=== PATIENT | female | born 1980 | race Caucasian/White ===

== ENCOUNTER 2017-10-13 09:50 | Outpatient (CLI) | payer OTHER ==
--- NOTE | 2017-10-14 12:33 | MRI ---
THORACIC SPINE WITHOUT CONTRAST: History: Multiple sclerosis. Evaluate for progression of disease. Comparison: None. Technique: MRI of the thoracic spine was performed with and without intravenous gadolinium administra tion. Multisequential, multiplanar imaging was performed. FINDINGS: Appropriate T1 marrow signal intensity of the thoracic vertebrae. Vertebral body height is maintained . No fracture. No significant STIR hyperintensity seen to suggest edema or ligamentous injury. Visualized mediastinal structures are unremarkable. Dependent atelectasis change in the lung parenchy ma. Visualized solid organs are unremarkable. The thoracic cord has an overall normal size and signal intensity. There is no evidence of a T2 hyper intense lesion. No evidence of cord expansion. No evidence of cord atrophy or malacia. No abnormal en hancement. There are some degenerative changes of the lower cervical spine. Refer to separate cervical spine MRI report for further detailed. Throughout the thoracic spine, no significant degenerative disc disease. No significant central canal stenosis or foraminal narrowing of the thoracic spine. There is minimal disc bulge at T11-12 without significant compromise of the central canal. IMPRESSION: 1. Unremarkable MRI of the thoracic spine. No significant central canal stenosis or foraminal narrowi ng. 2. No abnormal signal intensity in the thoracic cord to suggest a demyelinating plaque. POS: [facility]
--- NOTE | 2017-10-14 12:52 | MRI ---
MRI BRAIN WITH AND WITHOUT CONTRAST: DATE: 10-14-17 HISTORY: 37-year-old female: G35 relapsing, remitting multiple sclerosis. G40.909 seizure disorder COMPARISON: None. TECHNIQUE: Multiple sequences obtained in axial, sagittal, and coronal planes; pre and post IV injection of gado linium-based contrast agent: 15 ml MultiHance. In addition to the standard sequences, sagittal FLAIR sequence, coronal FLAIR sequence, and post cont rast T1 coronal MP-RAGE sequences were obtained. FINDINGS: There is a subtle, small, approximately 1 cm patch of hyperintensity on T2 WI and FLAIR, at the left brachium pontis (middle cerebellar peduncle) abutting the lateral edge of the 4th ventricle. There is a subtle, minimal, less than 1 cm patch of hyperintensity demonstrated on FLAIR sequence in the right posterior medial temporal lobe abutting the lateral edge of the periventricular white matte r between the trigone and temporal horn of the right lateral ventricle (axial image 11 of 27, series 2). There is also a similar small patchy focus of subtle hyperintensity of T2 WI and FLAIR in the periven tricular white matter abutting the occipital horn of the right lateral ventricle (axial image 12 of 2 7, series 2). There is no lesion involving the corpus callosum or centrum semiovale. No signal abnormality of the c erebellum or cortex. Brain parenchymal volume is normal. Ventricles are normal in size and configurat ion. No evidence of recent or remote hemorrhage. No mass effect, midline shift, or extraaxial fluid c ollection. Hippocampi are normal and symmetrical in size bilaterally. IMPRESSION: 1. Three small, subtle, faint patchy foci of signal abnormality: one in the left brachium pontis, one in the periventricular white matter abutting the right occipital horn, and another in the periventri cular white matter of the posterior medial right temporal lobe. These are nonspecific. One possibilit y is a demyelinating disease such as multiple sclerosis. 2. Recommend follow up. VANESSA Jordan POS: [facility]
--- NOTE | 2017-10-14 13:08 | MRI ---
MRI CERVICAL SPINE WITH AND WITHOUT CONTRAST: Multiplanar, multisequential imaging cervical spine obtained. Postcontrast images obtained after adm inistration of 15 cc MultiHance IV. INDICATION: Relapsing remitting multiple sclerosis. COMPARISON: No comparison. FINDINGS: The cervical vertebrae maintain normal height and alignment. Vertebral body signal is normal. The d isk spaces are maintained. There is a small protrusion paracentrally to the left at C6-7. This flattens the anterior thecal sac on the left but does not impinge on the cord. There is no foraminal encroachment. Mild disk bulge at C4-5 and C5-6 flattens the thecal sac and mildly effaces the anterior subarachnoid space at both of these levels. The cord signal is normal. There is no evidence of demyelinating plaque seen within the cervical cor d. No abnormal enhancement is seen within the cervical cord. IMPRESSION: 1. No abnormal cervical cord signal. 2. Small protrusion paracentrally on the left at C6-7. Mild disk bulge at C4-5 and C5-6 as describe d above. POS: [facility]
--- NOTE | 2017-10-17 10:33 | EEG ---
Referring Physician: DR. WILL JEFF EEG # [id number] PROCEDURE: Outpatient prolonged 1 hour electroencephalogram NAME OF PATIENT: Raina Rockwell DATE OF : 1980 DATE EEG DONE: 10/13/2017. INDICATION: Seizures. EEG CLASSIFICATION: Normal awake and drowsy. REPORT: This is a 22-channel digital EEG recording utilizing 10-20 international electrode placement system on a patient who presents with seizures. During wakefulness, the background activity consists of moderate amplitude dominant alpha rhythm of 9-10 Hz. It is symmetric and reactive. This activity is penetrated occasionally by low amplitude fast beta activity and with myogenic activity representing frontalis and temporalis muscles bilaterally. DROWSINESS AND SLEEP: Subject is able to attain periods of drowsiness with diffuse theta activity. There is no clear sleep recorded during this EEG. There is no asymmetry or paroxysmal activity noted. INDUCTION: HYPERVENTILATION: With fair effort results in no significant change in the background activity. PHOTIC STIMULATION: No photic drive seen. EK per minute. IMPRESSION: This is a prolonged 1-hour EEG recording. This EEG is considered normal awake and drowsy EEG. There is no clear epileptiform activity or focal abnormality noted. Clinical correlation recommended. 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
== END 2017-10-13 09:51 | disposition home or self-care (01) ==
LOC: EEG 09:50 → SCSMRI 09:51
PROVIDERS: ATTEND Student in an Organized Health Care Education/Training Program
DX: G40.909 Epilepsy, unspecified, not intractable, without status epilepticus (principal); G35 Multiple sclerosis; M50.221 Other cervical disc displacement at C4-C5 level; M50.222 Other cervical disc displacement at C5-C6 level; M50.223 Other cervical disc displacement at C6-C7 level; R94.02 Abnormal brain scan
CPT/HCPCS: 70553; 72156; 72157; 95816

== ENCOUNTER 2018-01-24 19:15 | Emergency (ER) | payer OTHER ==
[~2018-01-24 19:15] MED LIST: ISOVUE-370 76%-LOCM 1 ML ONE
[2018-01-24 19:33] LABS: #Basophils 0.1 thou/uL (0.0-0.2); #Eosinphils 0.4 thou/uL (0.0-0.7); #Lymphocytes 2.9 thou/uL (1.20-3.40); #Monocytes 0.9 thou/uL (0.11-0.59); %Basophils 1.1 % (0.0-1.0); %Eosinophils 3.4 % (0.0-10.0); %Lymphocytes 25.7 % (21.0-51.0); %Neutrophils 61.9 % (42.0-75.0); Hemoglobin 13.3 g/dL (12.0-16.0); Mean Corpuscular HGB CONC 34.6 g/dL (32.0-36.0); Mean Corpuscular Hemoglobin 34.8 pg (27.0-31.0); Mean Platelet Volume 7.5 fL (7.4-10.4); Platelet Count 280 thou/uL (130-400); RBC Distribution Width 11.8 % (11.5-14.5); Red Blood Cell (RBC) Count 3.81 mill/uL (4.20-5.40); White Blood Cell (WBC) Count 11.3 thou/uL (4.8-10.8)
[2018-01-24 19:42] LABS: BHCG - Serum Negative (NEGATIVE); Pregs Control Background? CLEAR/WHITE (CLR/WHITE); Pregs Control Bar Appear? YES (CONTROL BAR)
[2018-01-24 19:57] LABS: ALT (SGPT) 27 U/L (8-55); AST (SGOT) 23 U/L (5-34); Albumin 4.2 g/dL (3.5-5.0); Alcohol Less than 10 mg/dL (Less than 10); Alkaline Phosphatase 106 U/L (40-150); Anion Gap 13 mmol/L (10-20); BUN (Urea Nitrogen) 7 mg/dL (7.0-18.7); Bilirubin, Total 0.2 mg/dL (0.2-1.2); Calc. Creatinine Clearance 0 mL/min (70-130); Calcium 8.8 mg/dL (7.8-10.44); Carbon Dioxide 21 mmol/L (22-29); Chloride 109 mmol/L (98-107); Estimated GFR-MDRD 77; Globulin 2.8 g/dL (2.4-3.5); Glucose 86 mg/dL (70-105); Lipase 40 U/L (8-78); Potassium 4.2 mmol/L (3.5-5.1); Sodium 139 mmol/L (136-145)
[2018-01-24 20:10] LABS: Bilirubin Negative (Negative); Blood, Urine Negative (Negative); Clarity CLEAR (Clear); Glucose, Urine (Dipstick) Negative (Negative); Leukocyte Negative (Negative); Nitrite Negative (Negative); Protein, Urine (Dipstick) Negative (Neg-Trace); Specific Gravity, Urine 1.018 (1.002-1.036); Urobilinogen 0.2 mg/dL (0.2-1.0)
[2018-01-24 20:23] LABS: Amphetamine Not Detected (NotDetected); Benzodiazepine Screen Detected (NotDetected); Cocaine Metabolite Screen Not Detected (NotDetected); Medtox Reader # READER 1; Methadone Not Detected (NotDetected); Methamphetamine Not Detected (NotDetected); Opiate Screen Not Detected (NotDetected); Phencyclidine (PCP) Not Detected (NotDetected); THC/Cannabinoid Screen Not Detected (NotDetected); Tricyclic Screen Not Detected (NotDetected)
[2018-01-24 20:24] LABS: Barbiturates Screen Not Detected (NotDetected); Medtox Control Line Valid? VALID (VALID); Oxycodone Screen Not Detected (NotDetected)
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
== END 2018-01-24 20:51 ==
LOC: ERS 19:15
DX: F19.980 Other psychoactive substance use, unspecified with psychoactive substance-induced anxiety disorder (principal); F15.90 Other stimulant use, unspecified, uncomplicated; V49.9XXA Car occupant (driver) (passenger) injured in unspecified traffic accident, initial encounter
CPT/HCPCS: 51701; 70450; 71260; 72125; 74177; 80053; 80306; 80307; 81003; 83690; 84703; 85025; A4353

== ENCOUNTER 2018-04-26 05:09 | Emergency (ER) | payer OTHER | END 2018-04-26 07:52 | disposition home or self-care (01) | LOC: ERS 05:09 | DX: S00.03XA Contusion of scalp, initial encounter (principal); F41.9 Anxiety disorder, unspecified; F32.9 Major depressive disorder, single episode, unspecified; F17.210 Nicotine dependence, cigarettes, uncomplicated; Z79.899 Other long term (current) drug therapy; W22.8XXA Striking against or struck by other objects, initial encounter | CPT/HCPCS: 99283 ==

== ENCOUNTER 2018-04-26 15:33 | Emergency (ER) | payer OTHER ==
[2018-04-26] MEDS ORDERED: Ondansetron PF 4 MG/2 ML Vial ONE (16:40)
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
== END 2018-04-26 19:15 | disposition home or self-care (01) ==
LOC: ERS 15:33
DX: S09.90XA Unspecified injury of head, initial encounter (principal); R19.7 Diarrhea, unspecified; R11.2 Nausea with vomiting, unspecified; G35 Multiple sclerosis; F41.9 Anxiety disorder, unspecified; F32.9 Major depressive disorder, single episode, unspecified; F17.210 Nicotine dependence, cigarettes, uncomplicated; Z79.899 Other long term (current) drug therapy; W19.XXXA Unspecified fall, initial encounter
CPT/HCPCS: 70450; 93005; 96361; 96374; J2405

== ENCOUNTER 2018-09-06 14:06 | Outpatient (CLI) | payer OTHER ==
--- NOTE | 2018-09-06 16:57 | MRI ---
BRAIN MRI WITH AND WITHOUT CONTRAST: 09/06/18 COMPARISON: 10/13/17. HISTORY: Past medical history of multiple sclerosis, with relapse two to three weeks ago. Seizure. Migraine he adaches. FINDINGS: No hemorrhage on the axial gradient echo sequence. Essentially stable T2 and FLAIR hyperintensities i n a periventricular location, adjacent to the occipital horn of the right lateral ventricle as well a s the left brachium pontis. When compared to the previous examination, these lesions have not signifi cantly changed in size. No new abnormal signal intensities in the white matter are appreciated. Calvarium has a normal T1 marrow signal intensity. The midline brain parenchymal structures are unrem arkable. Symmetric signal intensity of the hippocampi. No MR evidence of mesial temporal sclerosis. Central arterial flow voids are maintained. Absent restricted diffusion. No pathologic enhancement of the brain parenchyma. No associated enhancement with the T2 and FLAIR hy perintensities described in the periventricular white matter and the left brachium pontis. IMPRESSION: 1. No abnormal enhancement. 2. No restricted diffusion. 3. Essentially stable T2 and FLAIR hyperintensities as described above. POS: [facility]
== END 2018-09-06 14:07 | disposition home or self-care (01) ==
LOC: SCSMRI 14:06
PROVIDERS: ATTEND Nurse Practitioner Acute Care
DX: G43.909 Migraine, unspecified, not intractable, without status migrainosus (principal); G40.909 Epilepsy, unspecified, not intractable, without status epilepticus; G35 Multiple sclerosis
CPT/HCPCS: 70553

== ENCOUNTER 2018-10-05 11:22 | Outpatient (CLI) | payer OTHER ==
[2018-10-05 11:48] LABS: Anion Gap 13 mmol/L (10-20); BUN (Urea Nitrogen) 6 mg/dL (7.0-18.7); Calc. Creatinine Clearance 0 mL/min (70-130); Calcium 9.1 mg/dL (7.8-10.44); Carbon Dioxide 21 mmol/L (22-29); Chloride 109 mmol/L (98-107); Estimated GFR-MDRD 80; Glucose 122 mg/dL (70-105); Sodium 139 mmol/L (136-145)
--- NOTE | 2018-10-05 11:55 | ULT ---
US Renal Bilateral STANDARD HISTORY:Nocturia COMPARISON: None. FINDINGS: Real-time imaging of the right and left kidneys were performed. The kidneys are normal in s ize. Right kidney measures 11.2 cm, left kidney 10.3 cm in size. A subtle hypoechoic area in the medial aspect of the right kidney is vague. In reviewing the previous CT examination I do not see any cyst in this region and do not believe this to be of any consequence. Bladder region appears unremarkable. The prevoid volume of the bladder is 57 cc. Postvoid imaging not obtained. IMPRESSION: Unremarkable renal ultrasound
== END 2018-10-05 11:23 | disposition home or self-care (01) ==
LOC: SCSULT 11:22
PROVIDERS: ATTEND Urology
DX: G35 Multiple sclerosis (principal); R35.1 Nocturia
CPT/HCPCS: 36415; 76770; 80048

== ENCOUNTER 2019-05-07 09:37 | Outpatient (CLI) | payer OTHER | END 2019-05-07 09:38 | disposition home or self-care (01) | LOC: CTENTCT 09:37 | PROVIDERS: ATTEND Otolaryngology Plastic Surgery within the Head & Neck | DX: J32.9 Chronic sinusitis, unspecified (principal) | CPT/HCPCS: 70486 ==

== ENCOUNTER 2019-05-30 08:50 | Day surgery (SDC) | payer OTHER ==
[2019-05-29 13:10] VITALS: BMI 33.3
[2019-05-30] MEDS ORDERED: Fentanyl 100 MCG/2 ML VIAL ONE ×4 (09:01→13:09)
[2019-05-30] MEDS ORDERED: methylPREDNISolone Acetate 40 mg/ml Vial ONE (09:01)
[2019-05-30] MEDS ORDERED: ePHEDrine/0.9% NaCl/PF SYRINGE 50 mg/10 ml ONE (09:41)
[2019-05-30] MEDS ORDERED: PHENYLEPHRINE-NS 100 MCG/ML 10 ML SYRINGE ONE (09:41)
[2019-05-30] MEDS ORDERED: Lidocaine 1% PF 5 ML VIAL ONE (09:41)
[2019-05-30] MEDS ORDERED: Ondansetron PF 4 MG/2 ML Vial ONE (09:41)
[2019-05-30] MEDS ORDERED: PROPOFOL 200 MG/20 ML VIAL ONE (09:41)
[2019-05-30] MEDS ORDERED: Dexamethasone 20 MG/5 ML VIAL ONE (09:41)
[2019-05-30] MEDS ORDERED: Bacitracin Zinc Ointment 30 gm TUBE ONE (10:13)
[2019-05-30] MEDS ORDERED: Lidocaine 1% w/Epinephrine 1:100K 20 ML VIAL ONE (10:13)
[2019-05-30] MEDS ORDERED: Midazolam HCl 2 mg/2 ml Vial ONE (11:50)
[2019-05-30] MEDS ORDERED: Metoclopramide HCl 10 MG/2 ML VIAL ONE (11:50)
[2019-05-30] MEDS ORDERED: Promethazine HCl 25 MG/ML VIAL IM/IV PRN (12:00)
[2019-05-30] MEDS ORDERED: Ondansetron HCl/PF 4 MG/2 ML Vial IVP PRN (12:00)
[2019-05-30] MEDS ORDERED: Metoclopramide HCl 10 MG/2 ML VIAL IVP SCH (12:00)
[2019-05-30] MEDS ORDERED: Midazolam HCl 2 mg/2 ml Vial IVP SCH (12:00)
[2019-05-30] MEDS ORDERED: Non-Formulary Medication 1 EACH PO PRN (13:09)
[2019-05-30] MEDS ORDERED: Hydrocodone-Acetamin 15 ML UDCUP ONE (13:50)
--- NOTE | 2019-05-31 09:16 | OP ---
DATE OF PROCEDURE: 05/30/2019 PREOPERATIVE DIAGNOSES: 1. Recurrent acute sinusitis. 2. Nasal septal deviation. 3. Bilateral inferior turbinate hypertrophy. 4. Nasal obstruction. POSTOPERATIVE DIAGNOSES: 1. Recurrent acute sinusitis. 2. Nasal septal deviation. 3. Bilateral inferior turbinate hypertrophy. 4. Nasal obstruction. PROCEDURES PERFORMED: 1. Bilateral endoscopic sinus surgery, total ethmoidectomies. 2. Bilateral endoscopic sinus surgery, maxillary antrostomies. 3. Bilateral endoscopic sinus surgery, frontal sinusotomies. 4. Nasal septoplasty. 5. Bilateral inferior turbinate submucosal resection. ESTIMATED BLOOD LOSS: 20 mL. COMPLICATIONS: None. ANESTHESIA: GETA. DESCRIPTION OF PROCEDURE: The patient was taken to the operating room and GETA was obtained by the anesthesia staff. Afrin pledgets were then placed into the nasal cavity bilaterally. The patient was placed into the beach chair position and was prepped and draped for standard nasal surgical procedures. Following this, the Afrin pledgets were removed and 1% lidocaine with 1:100,000 epinephrine was injected via a 27 gauge needle into the nasal septum, the inferior turbinate and the middle turbinate bilaterally. Following this, a Donald incision was made on the left nasal septum and mucoperichondrial flaps were elevated. A strong 2 cm caudal and dorsal cartilage strut was left intact as the deviated portions of the nasal cartilage and bone was removed. A 4-0 gut stitch was used to reapproximate the nasal mucoperichondrial flaps as well as close the Donald incision. Following this, the submucosal microdebrider was used to puncture and submucosally resect the anterior-inferior portions of the hypertrophic inferior turbinates. The inferior turbinates were laterally outfractured with a [place] elevator. Following this, 1% lidocaine with 1:100,000 epinephrine were injected into the middle turbinates and lateral nasal wall bilaterally. Following this, the 0-degree endoscope was used to visualize the middle turbinate and the middle turbinate was medially fractured using a [place] elevator. Following this, the uncinate process was identified and was examined. The uncinate process was noted to be inflamed and laterally displaced bilaterally. Following this, a ball-ended probe was used to anteriorly fracture the uncinate process bilaterally. Following this, the 0-degree microdebrider and the up-biting [place] forceps were used to remove the uncinate process bilaterally. Following this, the natural maxillary sinus ostia was identified with the 0-degree endoscope and the ball-ended probe. The natural maxillary ostia were then widened using a 40-degree microdebrider and the straight [place] forceps bilaterally. Following this, the ethmoidal bulla was identified bilaterally. A 0-degree microdebrider was used to puncture the ethmoidal bulla on its medial and inferior aspect bilaterally. Following this, the 0-degree microdebrider and the up-biting [place] forceps were used to remove the ethmoidal bulla. Following this, the grand lamella was identified posterior to this area and was punctured using the 0-degree microdebrider bilaterally. Following this, the ethmoidal cells were opened from the posterior to the anterior using the 0-degree microdebrider, the 40-degree microdebrider and the up-biting [place] forceps bilaterally. Following this, the 45-degree endoscope and the 40-degree microdebrider blade were used to further remove the anterior ethmoidal cells to the level of the frontal sinus recess bilaterally. Following this, the 45-degree endoscope was advanced into the middle meatus area. The frontal recess and nasal frontal duct were extremely narrow. The 40-degree microdebrider blade and the up-biting [place]akes[place] forceps was used to remove bony tissue widening the frontal sinus ostia bilaterally. Following this, the nasal cavity was irrigated. NasoPore packing was placed within the middle meatus. The patient tolerated the procedure well. Job ID: [id number]
== END 2019-05-30 14:15 | disposition home or self-care (01) ==
LOC: SDC 08:50
PROVIDERS: ATTEND Otolaryngology Plastic Surgery within the Head & Neck
DX: J01.91 Acute recurrent sinusitis, unspecified (principal); J34.2 Deviated nasal septum; J34.3 Hypertrophy of nasal turbinates; J34.89 Other specified disorders of nose and nasal sinuses; F17.210 Nicotine dependence, cigarettes, uncomplicated; L50.8 Other urticaria; G47.00 Insomnia, unspecified; Z79.899 Other long term (current) drug therapy; Z88.5 Allergy status to narcotic agent; Z88.8 Allergy status to other drugs, medicaments and biological substances
CPT/HCPCS: 36415; 85014; J1030; J1100; J2001; J2250; J2405; J2704; J2765; J3010

== ENCOUNTER 2019-08-30 12:35 | Outpatient (CLI) | payer OTHER ==
--- NOTE | 2019-08-30 13:39 | MRI ---
MRI BRAIN WITHOUT CONTRAST: HISTORY: Multiple sclerosis, seizure disorder COMPARISON: 09/06/2018 FINDINGS: No restricted diffusion is seen. There are few stable foci of T2 prolongation in the periventricular white matter Including the left brachium pontis and adjacent to the occipital horn of the right lateral ventricle. , consistent with chronic small vessel ischemic disease. The ventricular size is appropriate and the basilar cisterns are patent. No evidence of acute infarct, hemorrhage, midline shift or abnormal extra-axial fluid collections is seen. The visualized paranasal sinuses and mastoid air cells are well-aerated. Absence of IV contrast reduces the sensitivity exam. Possibility of active demyelination cannot be ex cluded. IMPRESSION: No evidence of acute intracranial process. Stable plaque burden.
== END 2019-08-30 12:36 | disposition home or self-care (01) ==
LOC: SCSMRI 12:35
PROVIDERS: ATTEND Psychiatry & Neurology Neurology
DX: G40.909 Epilepsy, unspecified, not intractable, without status epilepticus (principal); G43.909 Migraine, unspecified, not intractable, without status migrainosus; G35 Multiple sclerosis
CPT/HCPCS: 70551

== ENCOUNTER 2020-05-23 11:40 | Outpatient (CLI) | payer OTHER | END 2020-05-23 11:41 | disposition home or self-care (01) | LOC: DTY/OP 11:40 | PROVIDERS: ATTEND Surgery | DX: E66.01 Morbid (severe) obesity due to excess calories (principal) | CPT/HCPCS: 97802 ==

== ENCOUNTER 2020-06-18 06:30 | Outpatient (CLI) | payer OTHER ==
[2020-06-18 12:05] LABS: #Basophils 0.1 10x3/uL (0.0-0.2); #Eosinphils 0.1 10x3/uL (0.0-0.5); #Monocytes 0.7 10x3/uL (0.0-1.1); #Neutrophils 6.8 10x3/uL (1.5-8.4); %Basophils 1.5 % (0.0-2.0); %Eosinophils 1.5 % (0.0-6.0); %Lymphocytes 15.7 % (18.0-47.0); %Monocytes 7.6 % (0.0-10.0); %Neutrophils 73.3 % (40.0-75.0); Hemoglobin 13.3 g/dL (12.0-16.0); Mean Corpuscular HGB CONC 31.4 G/DL (32.0-36.0); Mean Corpuscular Hemoglobin 29.6 PG (27.0-33.0); Mean Corpuscular Volume 94.4 fl (80.0-100.0); Platelet Count 298 10x3/uL (130-400); RBC Distribution Width 15.3 % (11.5-14.5); Red Blood Cell (RBC) Count 4.49 10x6/uL (3.90-5.20); White Blood Cell (WBC) Count 9.3 10x3/uL (4.5-11.0)
[2020-06-18 12:25] LABS: BHCG - Serum Negative (NEGATIVE); Pregs Control Background? CLEAR/WHITE (CLR/WHITE); Pregs Control Bar Appear? YES (CONTROL BAR)
[2020-06-18 12:40] LABS: ALT (SGPT) 14 U/L (8-55); AST (SGOT) 15 U/L (5-34); Albumin 4.2 g/dL (3.5-5.0); Alkaline Phosphatase 153 U/L (40-110); Anion Gap 14 mmol/L (10-20); BUN (Urea Nitrogen) 8 mg/dL (7.0-18.7); Bilirubin, Total 0.2 mg/dL (0.2-1.2); Calc. Creatinine Clearance 0 mL/min (70-130); Carbon Dioxide 22 mmol/L (22-29); Chloride 109 mmol/L (98-107); Globulin 2.8 g/dL (2.4-3.5); Glucose 95 mg/dL (70-105); Potassium 4.6 mmol/L (3.5-5.1); Sodium 140 mmol/L (136-145)
--- NOTE | 2020-06-18 14:41 | RAD ---
EXAM: CHEST TWO VIEWS: 06/18/20 HISTORY: Preoperative evaluation. Heart size is within normal limits. The lungs are clear. IMPRESSION: No significant acute intrathoracic disease. POS: [facility]
[2020-06-18 16:22] LABS: Hemoglobin A1c 5.1 % (4.0-6.0)
[2020-06-18 17:44] LABS: SARS-CoV-2 MS2 Positive; SARS-CoV-2 N Gene Negative; SARS-CoV-2 S Gene Negative; SARS-CoV-2 by NAA Not Detected (NotDetected); SARS-CoV-2 orf1ab Negative
--- NOTE | 2020-06-18 21:31 | EKG ---
Test Reason : Blood Pressure : / mmHG Vent. Rate : 095 BPM Atrial Rate : 095 BPM P-R Int : 138 ms QRS Dur : 072 ms QT Int : 352 ms P-R-T Axes : 030 045 031 degrees QTc Int : 442 ms Normal sinus rhythm Cannot rule out Anterior infarct , age undetermined Abnormal ECG No previous ECGs available Confirmed by Manjula BARTLETT ([id number]) on 06/18/2020 9:31:12 PM Referred By: TY Confirmed By:Manjula BARTLETT
== END 2020-06-18 06:31 | disposition home or self-care (01) ==
LOC: LABBT 06:30
PROVIDERS: ATTEND Surgery
DX: Z01.818 Encounter for other preprocedural examination (principal); E66.01 Morbid (severe) obesity due to excess calories; Z20.828 Contact with and (suspected) exposure to other viral communicable diseases
CPT/HCPCS: 71046; 80053; 83036; 84703; 85025; 87635; 93005; 93010; U0003

== ENCOUNTER 2020-07-02 08:12 | Outpatient (CLI) | payer OTHER ==
[2020-07-03 01:38] LABS: SARS-CoV-2 MS2 Positive; SARS-CoV-2 N Gene Negative; SARS-CoV-2 S Gene Negative; SARS-CoV-2 by NAA Not Detected (NotDetected); SARS-CoV-2 orf1ab Negative
== END 2020-07-02 08:13 | disposition home or self-care (01) ==
LOC: LABBT 08:12
PROVIDERS: ATTEND Surgery
DX: Z01.812 Encounter for preprocedural laboratory examination (principal); Z20.822 Contact with and (suspected) exposure to COVID-19; E66.01 Morbid (severe) obesity due to excess calories
CPT/HCPCS: 87635; U0003; U0005

== ENCOUNTER 2020-12-01 16:11 | Emergency (ER) | payer OTHER ==
[2020-12-01 18:04] LABS: #Basophils 0.1 thou/uL (0.0-0.2); #Eosinphils 0.2 thou/uL (0.0-0.7); #Lymphocytes 1.1 thou/uL (1.20-3.40); #Monocytes 0.7 thou/uL (0.11-0.59); #Neutrophils 4.4 thou/uL (1.40-6.50); %Basophils 1.1 % (0.0-1.0); %Eosinophils 3.2 % (0.0-10.0); %Lymphocytes 17.1 % (21.0-51.0); %Monocytes 11.1 % (0.0-10.0); %Neutrophils 67.4 % (42.0-75.0); Hemoglobin 12.5 g/dL (12.0-16.0); Mean Corpuscular HGB CONC 34.2 g/dL (32.0-36.0); Mean Corpuscular Volume 96.6 fL (78.0-98.0); Mean Platelet Volume 10.9 fL (7.4-10.4); Platelet Count 174 thou/uL (130-400); RBC Distribution Width 13.3 % (11.5-14.5); Red Blood Cell (RBC) Count 3.78 mill/uL (4.20-5.40); White Blood Cell (WBC) Count 6.5 thou/uL (4.8-10.8)
[2020-12-01 18:13] LABS: BHCG - Serum Negative (NEGATIVE); Pregs Control Background? CLEAR/WHITE (CLR/WHITE); Pregs Control Bar Appear? YES (CONTROL BAR)
[2020-12-01 18:24] LABS: ALT (SGPT) 25 U/L (8-55); AST (SGOT) 41 U/L (5-34); Alkaline Phosphatase 134 U/L (40-110); Anion Gap 18 mmol/L (10-20); BUN (Urea Nitrogen) 5 mg/dL (7.0-18.7); Bilirubin, Total 0.6 mg/dL (0.2-1.2); Calc. Creatinine Clearance 0 mL/min (70-130); Calcium 9.3 mg/dL (7.8-10.44); Carbon Dioxide 22 mmol/L (22-29); Chloride 103 mmol/L (98-107); Glucose 70 mg/dL (70-105); Sodium 140 mmol/L (136-145)
[2020-12-01 19:44] LABS: Acetaminophen Less than 6.0 mcg/mL (10.0-30.0); Alcohol Less than 10 mg/dL (Less than 10); Salicylate Less than 8.0 mg/dL (15.0-30.0)
[2020-12-01] MEDS ORDERED: Ketorolac Tromethamine 30 MG/ML VIAL ONE (20:17)
[2020-12-01 20:46] LABS: Bilirubin Small (Negative); Blood, Urine Small (Negative); Glucose, Urine (Dipstick) Negative (Negative); Ketone, Urine > or equal to 80 mg/dL (Negative); Leukocyte Negative (Negative); Nitrite Negative (Negative); Protein, Urine (Dipstick) Negative (Neg-Trace); Urobilinogen 0.2 mg/dL (Less than 2)
[2020-12-01 20:47] LABS: Clarity Clear (Clear)
[2020-12-01 20:48] LABS: Specific Gravity, Urine 1.026 (1.002-1.036)
[2020-12-01 20:51] LABS: Bacteria/HPF None Seen HPF (None Seen); Mucous/LPF Rare LPF (<2+); Squamous Epithelial None Seen HPF (0-3); WBC/HPF 0-3 HPF (0-3)
[2020-12-01 21:01] LABS: Amphetamine Not Detected (NotDetected); Benzodiazepine Screen Not Detected (NotDetected); Cocaine Metabolite Screen Detected (NotDetected); Medtox Reader # READER 4; Methadone Not Detected (NotDetected); Methamphetamine Not Detected (NotDetected); Opiate Screen Not Detected (NotDetected); Phencyclidine (PCP) Not Detected (NotDetected); THC/Cannabinoid Screen Detected (NotDetected); Tricyclic Screen Not Detected (NotDetected)
[2020-12-01 21:02] LABS: Barbiturates Screen Not Detected (NotDetected); Medtox Control Line Valid? VALID (VALID); Oxycodone Screen Not Detected (NotDetected)
== END 2020-12-01 21:17 | disposition home or self-care (01) ==
LOC: ERS 16:11
DX: M79.10 Myalgia, unspecified site (principal); S80.12XA Contusion of left lower leg, initial encounter; S80.11XA Contusion of right lower leg, initial encounter; R51.9 Headache, unspecified; G35 Multiple sclerosis; F17.210 Nicotine dependence, cigarettes, uncomplicated; Z79.899 Other long term (current) drug therapy; X58.XXXA Exposure to other specified factors, initial encounter; G47.00 Insomnia, unspecified
CPT/HCPCS: 36415; 51701; 80053; 80306; 80307; 81003; 81015; 84703; 85025; 96374; J1885